=== PATIENT | male | born 1995 | race Caucasian/White ===

== ENCOUNTER 2019-03-17 12:41 | Observation (INO) | payer OTHER, BC ==
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
--- NOTE | 2019-03-17 13:59 | CR ---
DATE OF SERVICE: 03/17/19 CLINICAL DATA: Chest trauma. AP CHEST: The heart size is normal. The lungs are clear. No pneumothorax. No pleural effusion. No displaced fractures. IMPRESSION: Normal. [id number] MTDD
[2019-03-17] MEDS ORDERED: Acetaminophen 325 MG Tab PO PRN (15:03)
[2019-03-17] MEDS: Ketorolac 10 MG Tab PO ONE (15:10)
--- NOTE | 2019-03-17 18:21 | CT ---
CLINICAL DATA: Trauma. UNENHANCED BRAIN CT, 17 MARCH 2019: Multislice acquisitions through the brain without IV contrast were performed. No priors. No masses or mass effect. No intracranial hemorrhage. No evidence of acute or subacute infarct. No osseous abnormalities. IMPRESSION: Normal exam. Job: [id number] MTDD
--- NOTE | 2019-03-17 18:23 | CT ---
CLINICAL DATA: Trauma. UNENHANCED CHEST CT, 17 MARCH 2019: Multislice acquisition through the chest without IV contrast was performed. No priors. The lungs are clear. No areas of consolidation. No pneumothorax. No pleural effusions. The heart size is normal. No pericardial effusion. No aortic aneurysm. No hilar or mediastinal adenopathy. No displaced fractures. IMPRESSION: Negative exam. Job: [id number] MTDD
[2019-03-17] MEDS: Ibuprofen 600 MG Tab PO PRN (19:20)
[2019-03-18 08:56] VITALS: BP 118/72
--- NOTE | 2019-03-18 09:07 | PCM.DCSUM1 ---
Discharge Summary - Hospital Course Free Text/Narrative:: 23 year old male , with blunt chest wall trauma, admitted for observation to make sure he does not develop delayed pulmonary contusion or cardiopulmonary symptoms. His initial workup in the emergency room was normal. His CT head and Ct chest were negative for any acute injury. Pt was placed on cardiac monitoring and pulse ox. Pt had had uneventful stay over night. He claims he feels fine. No difficultly with breathing. mild pain in the right lower chest. No complaints on today's visit. His vitals are stable and his clinical exam is normal. Pt reassured that he does not have any delayed complication of trauma. He should be okay to return to work. He does have chest wall pain. Advised intermittent heat to the chest wall 3-4 times daily. Motrin 800mg 3 times daily with food. Followup with primary care provider in 1 wk for recheck. Brief History: Pt was brought into emergency room on 03/17/19 with c/o blunt trauma to chest. Kindly see my H&P for detials. Diagnosis: Stroke: No Modified Bowman Scale: No Symptoms at All Modified Dg Scale Score: 0 - Discharge Data Discharge Date: 03/18/19 Discharge Disposition: Home, Self-Care 01 Condition: Good - Discharge Diagnosis/Problem(s) (1) Blunt chest trauma SNOMED Code(s): 264922019 ICD Code: S29.8XXA - OTHER SPECIFIED INJURIES OF THORAX, INITIAL ENCOUNTER Status: Acute Current Visit: Yes - Patient Instructions Diet: Regular Diet as Tolerated Fluid Restriction: 1500 mL Activity: As Tolerated - Discharge Plan *PRESCRIPTION DRUG MONITORING PROGRAM REVIEWED*: Not Applicable *COPY OF PRESCRIPTION DRUG MONITORING REPORT IN PATIENT ZAK: Not Applicable Home Medications: Home Meds Albuterol [Ventolin HFA] 8 gm IH Q4HR PRN 03/17/19 [History] Fluticasone/Salmeterol [Advair 250-50 Diskus] 1 each IH DAILY 03/17/19 [History] Referrals: PCP,None [Primary Care Provider] - - Discharge Summary/Plan Comment DC Time >30 min.: Yes Discharge Summary/Plan Comment: His vitals are stable and his clinical exam is normal. Pt reassured that he does not have any delayed complication of trauma. He should be okay to return to work. He does have chest wall pain. Advised intermittent heat to the chest wall 3-4 times daily. Motrin 800mg 3 times daily with food. Followup with primary care provider in 1 wk for recheck. - General Info Date of Service: 03/18/19 Admission Dx/Problem (Free Text: Pt claims he has been feeling better. No chest pain, shortness of breath or wheezing episodes over night. His hand funnel coater shows normal sinus rhythm. Tolerating oral diet well. Functional Status: Reports: Pain Controlled, Tolerating Diet, Ambulating, Urinating - Review of Systems General: Denies: Fever, Weakness, Fatigue HEENT: Denies: Headaches, Sinus Congestion, Sore Throat Pulmonary: Denies: Shortness of Breath, Pleuritic Chest Pain, Cough, Sputum, Hemoptysis Cardiovascular: Denies: Chest Pain, Lightheadedness Gastrointestinal: Denies: Abdominal Pain, Nausea, Vomiting Genitourinary: Denies: Frequency, Urgency Musculoskeletal: Denies: Joint Pain, Joint Swelling Skin: Reports: Bruising. Denies: Pruritis, Rash Neurological: Denies: Confusion, Dizziness, Headache, Numbness, Tingling - Patient Data Vitals - Most Recent: Last Vital Signs Temp 98.2 F 03/18/19 08:55 Pulse 60 03/18/19 05:00 Resp 18 03/18/19 08:55 BP 118/72 03/18/19 08:55 Pulse Ox 100 03/18/19 08:55 Weight - Most Recent: 83.007 kg Lab Results - Last 24 hrs: Laboratory Results - last 24 hr 03/17/19 03/17/19 Range/Units 13:20 13:20 WBC 9.6 (4.0-11.0) K/uL RBC 4.82 (4.50-6.50) M/uL Hgb 15.2 (13.0-18.0) g/dL Hct 43.7 (40.0-54.0) % MCV 91 (76-96) fL MCH 31.5 (27.0-32.0) pg MCHC 34.8 (31.0-35.0) g/dL RDW 12.1 (11.0-16.0) % Plt Count 209 (150-400) K/uL MPV 11.4 H (6.0-10.0) fL Neut % (Auto) 74.2 H (45.0-70.0) % Lymph % (Auto) 14.7 L (20.0-40.0) % [place] % (Auto) 8.2 (3.0-10.0) % Eos % (Auto) 2.7 (1.0-5.0) % Baso % (Auto) 0.2 (0.0-0.5) % Neut # (Auto) 7.12 (2.00-7.50) K/uL Lymph # (Auto) 1.41 L (1.50-4.00) K/uL [place] # (Auto) 0.79 (0.20-0.80) K/uL Eos # (Auto) 0.26 (0.04-0.40) K/uL Baso # (Auto) 0.02 (0.02-0.10) K/uL Sodium 142 (136-145) mmol/L Potassium 4.1 (3.5-5.1) mmol/L Chloride 104 (98-107) mmol/L Carbon Dioxide 27.3 (21.0-32.0) mmol/L Anion Gap 14.8 (5.0-15.0) mmol/L BUN 10 (8-26) mg/dL Creatinine 1.02 (0.70-1.30) mg/dL Est Cr Clr Drug Dosing TNP Estimated GFR (MDRD) > 60 (>60) MLS/MIN BUN/Creatinine Ratio 9.8 (6-25) Glucose 93 (74-100) mg/dL Calcium 9.3 (8.5-10.1) mg/dL Total Bilirubin 0.9 (0.0-1.0) mg/dL AST 168 H (15-37) U/L ALT 134 H (12-78) U/L Alkaline Phosphatase 73 (46-116) U/L Troponin I < 0.017 (0.000-0.060) ng/mL Total Protein 7.5 (6.4-8.2) g/dL Albumin 4.3 (3.4-5.0) g/dL Globulin 3.2 (2.2-4.2) g/dL Albumin/Globulin Ratio 1.3 (0.8-2.0) Med Orders - Current: Current Medications Acetaminophen (Tylenol) 650 mg PO Q6H PRN PRN Reason: Pain (Mild 1-3)/fever Ibuprofen (Motrin) 600 mg PO Q8H PRN PRN Reason: Pain (mild 1-3) Last Admin: 03/17/19 19:20 Dose: 600 mg Discontinued Medications Ketorolac Tromethamine (Toradol) 10 mg PO ONETIME ONE Stop: 03/17/19 14:48 Last Admin: 03/17/19 15:10 Dose: 10 mg - Exam General: Reports: Alert, Oriented HEENT: Reports: Pupils Equal, Pupils Reactive, EOMI, Mucous Membr. Moist/[place] Neck: Reports: Supple Lungs: Reports: Clear to Auscultation, Normal Respiratory Effort, Other Cardiovascular: Reports: Regular Rate, Regular Rhythm, Other (small superficial bruise over the right lower chest ,healing. Minimal tenderness aroudn the bruise ) GI/Abdominal Exam: Normal Bowel Sounds, Soft, Non-Tender, No Organomegaly, No Distention, No Abnormal Bruit, No Mass, Pelvis Stable Extremities: Normal Inspection, Normal Range of Motion, Non-Tender, No Pedal Edema, Normal Capillary Refill Skin: Reports: Warm, Intact Wound/Incisions: Reports: Healing Well Neurological: Reports: No New Focal Deficit
== END 2019-03-18 09:30 | disposition home or self-care (01) ==
LOC: LB.ED 12:41 → LB.MS 14:38 → UNDOADMOB 14:38 → LB.MS 15:03
PROVIDERS: ADMIT Family Medicine; ATTEND Family Medicine
DX: S20.211A Contusion of right front wall of thorax, initial encounter (principal); W22.8XXA Striking against or struck by other objects, initial encounter; Z79.51 Long term (current) use of inhaled steroids
CPT/HCPCS: 36415; 70450; 71045; 71250; 80053; 84484; 85025; 93005; 99285-25; A0425; A0429; A9270-GY; G0378